=== PATIENT | female | born 1960 | race African-American/Black ===

== ENCOUNTER 2019-05-11 20:43 | Emergency (ER) | payer MEDICAID, OTHER ==
[~2019-05-11] VITALS: Ht 170.2 cm; Wt 90.9 kg
[~2019-05-11 20:43] MED LIST: AMLO5TAB PO; CYCL-1 PO; DIPH-423 PO; HYDR25TA4 PO; IBUP-1984 PO; RISP0.5T3 PO; SERT25TA PO; SERT50TA PO; TRAZ-251 PO
[2019-05-11] MEDS ORDERED: ketorolac tromethamine 15mg/ml inj. IM ONE (21:55)
[2019-05-11 21:57] VITALS: BP 148/82
[2019-05-11] MEDS ORDERED: HYDR25TA4 PO (22:15)
== END 2019-05-11 22:50 | disposition home or self-care (01) ==
LOC: ER 20:44
DX: M25.561 Pain in right knee (principal); R22.43 Localized swelling, mass and lump, lower limb, bilateral; I10 Essential (primary) hypertension; M79.7 Fibromyalgia; J44.9 Chronic obstructive pulmonary disease, unspecified; M19.90 Unspecified osteoarthritis, unspecified site; F31.9 Bipolar disorder, unspecified; G89.29 Other chronic pain; F15.90 Other stimulant use, unspecified, uncomplicated; F11.90 Opioid use, unspecified, uncomplicated; Z86.14 Personal history of Methicillin resistant Staphylococcus aureus infection; Z60.2 Problems related to living alone; Z59.0 Homelessness; Z56.0 Unemployment, unspecified; Z88.8 Allergy status to other drugs, medicaments and biological substances; Z79.899 Other long term (current) drug therapy
CPT/HCPCS: 29505; 96372; 99283; J1885

== ENCOUNTER 2023-07-02 14:25 | Emergency (ER) | payer MEDICAID ==
[~2023-07-02] VITALS: Ht 170.2 cm; Wt 79.5 kg
[~2023-07-02 14:25] MED LIST changes: -RISP0.5T3 PO; +RISP0.5T65 PO
[2023-07-02 15:10] LABS: BASOPHILS % (AUTO) 0.7 % (0-1); EOSINOPHILS # (AUTO) 0.1 X10'3 (0-0.9); EOSINOPHILS % (AUTO) 1.9 % (0-6); HEMATOCRIT 38.1 % (35.0-45.0); LYMPHOCYTES # (AUTO) 1.8 X10'3 (1.1-4.8); LYMPHOCYTES % (AUTO) 33.1 % (21-51); MEAN CORPUSCULAR HEMOGLOBIN 28.7 PG (27.0-31.0); MEAN CORPUSCULAR HGB CONC 31.6 g/dL (33.0-36.5); MEAN CORPUSCULAR VOLUME 90.9 FL (78-98); MEAN PLATELET VOLUME 10.2 FL (7.4-10.4); MONOCYTES # (AUTO) 0.4 X10'3 (0-0.9); MONOCYTES % (AUTO) 6.9 % (2-12); NEUTROPHILS % (AUTO) 57.4 % (42-75); PLATELET COUNT 183 X10'3 (140-440); RED BLOOD COUNT 4.19 X10'6 (4.20-5.60); WHITE BLOOD COUNT 5.3 X10'3 (4.5-11.0)
[2023-07-02 15:15] VITALS: BP 103/69; PULSE 59; RESP 18; TEMP 98.3; O2SAT 98
[2023-07-02 15:25] LABS: ALANINE AMINOTRANSFERASE 11 U/L (12-78); ALBUMIN 3.5 G/DL (3.4-5.0); ALBUMIN/GLOBULIN RATIO 0.8 (1.1-1.5); ALKALINE PHOSPHATASE 83 IU/L (46-116); ANION GAP 7 (8-16); ASPARTATE AMINO TRANSFERASE 16 U/L (10-37); BILIRUBIN,TOTAL 0.3 MG/DL (0.1-1.0); BLOOD UREA NITROGEN 17 MG/DL (7-18); BUN/CREATININE RATIO 14.9 (10.0-20.0); CALCIUM 9.4 MG/DL (8.5-10.1); CHLORIDE 105 MMOL/L (99-107); CREATININE 1.14 MG/DL (0.40-0.90); GLUCOSE 103 MG/DL (70-104); POTASSIUM 3.6 MMOL/L (3.5-5.1); SODIUM 140 MMOL/L (135-145); TOTAL CARBON DIOXIDE 28.4 MMOL/L (24-32); eGFR 58 ML/MIN
== END 2023-07-02 17:13 | disposition home or self-care (01) ==
LOC: ER 14:26
DX: R07.9 Chest pain, unspecified (principal); J44.9 Chronic obstructive pulmonary disease, unspecified; I10 Essential (primary) hypertension; G89.29 Other chronic pain; M54.9 Dorsalgia, unspecified; F31.9 Bipolar disorder, unspecified; Z86.14 Personal history of Methicillin resistant Staphylococcus aureus infection; Z59.00 Homelessness unspecified; Z56.0 Unemployment, unspecified; Z88.5 Allergy status to narcotic agent; Z79.899 Other long term (current) drug therapy
CPT/HCPCS: 36415; 71045; 80053; 83880; 84484; 85025; 93005; 99285

== ENCOUNTER 2023-07-24 22:22 | Emergency (ER) | payer MEDICAID ==
[~2023-07-24] VITALS: Ht 180.3 cm; Wt 100.0 kg
[2023-07-24 22:26] VITALS: TEMP 98.2
--- NOTE | 2023-07-24 22:32 | NUR ---
AT BEDSIDE ASSESSING PATIENTS NEURO STATUS
[2023-07-24] MEDS ORDERED: LORazepam 1 MG tablet PO ONE (22:35)
[2023-07-24 23:14] LABS: BASOPHILS % (AUTO) 0.5 % (0-1); EOSINOPHILS # (AUTO) 0.2 X10'3 (0-0.9); EOSINOPHILS % (AUTO) 2.9 % (0-6); HEMATOCRIT 35.1 % (35.0-45.0); HEMOGLOBIN 11.4 g/dl (12.0-16.0); LYMPHOCYTES # (AUTO) 2.1 X10'3 (1.1-4.8); LYMPHOCYTES % (AUTO) 36.6 % (21-51); MEAN CORPUSCULAR HGB CONC 32.6 g/dL (33.0-36.5); MEAN CORPUSCULAR VOLUME 88.8 FL (78-98); MEAN PLATELET VOLUME 10.3 FL (7.4-10.4); MONOCYTES # (AUTO) 0.6 X10'3 (0-0.9); MONOCYTES % (AUTO) 9.7 % (2-12); NEUTROPHILS # (AUTO) 2.9 X10'3 (1.8-7.7); NEUTROPHILS % (AUTO) 50.3 % (42-75); PLATELET COUNT 175 X10'3 (140-440); RED BLOOD COUNT 3.95 X10'6 (4.20-5.60); RED CELL DISTRIBUTION WIDTH 13.7 % (11.5-14.5); WHITE BLOOD COUNT 5.8 X10'3 (4.5-11.0)
[2023-07-24 23:38] LABS: ALANINE AMINOTRANSFERASE 10 U/L (12-78); ALBUMIN 3.6 G/DL (3.4-5.0); ALBUMIN/GLOBULIN RATIO 0.9 (1.1-1.5); ALKALINE PHOSPHATASE 86 IU/L (46-116); ANION GAP 9 (8-16); ASPARTATE AMINO TRANSFERASE 19 U/L (10-37); BILIRUBIN,TOTAL 0.2 MG/DL (0.1-1.0); BLOOD UREA NITROGEN 30 MG/DL (7-18); BUN/CREATININE RATIO 22.1 (10.0-20.0); CALCIUM 9.2 MG/DL (8.5-10.1); CHLORIDE 103 MMOL/L (99-107); CREATININE 1.36 MG/DL (0.40-0.90); GLUCOSE 135 MG/DL (70-104); MAGNESIUM 1.9 MG/DL (1.5-2.4); PRO BRAIN NATRIURETIC PEPTIDE 88 PG/ML (0-125); SODIUM 140 MMOL/L (135-145); TOTAL PROTEIN 7.6 G/DL (6.4-8.2); eCRCL 47 ML/MIN; eGFR 47 ML/MIN
[2023-07-24 23:47] LABS: POTASSIUM 2.9 MMOL/L (3.5-5.1)
[2023-07-24] MEDS ORDERED: potassium Cl 20mEq/100mL bag 100 ML IV STA (23:47)
[2023-07-25 04:57] VITALS: BP 105/67; PULSE 54; RESP 16; O2SAT 98
== END 2023-07-25 05:02 | disposition home or self-care (01) ==
LOC: ER 22:23
DX: E87.6 Hypokalemia (principal); I10 Essential (primary) hypertension; J44.9 Chronic obstructive pulmonary disease, unspecified; M19.90 Unspecified osteoarthritis, unspecified site; F31.9 Bipolar disorder, unspecified; Z88.8 Allergy status to other drugs, medicaments and biological substances; Z79.899 Other long term (current) drug therapy; Z79.1 Long term (current) use of non-steroidal anti-inflammatories (NSAID); Z98.890 Other specified postprocedural states
CPT/HCPCS: 36415; 71045; 80053; 83735; 83880; 84484; 85025; 93005; 96365; 96366; 99285; J3480; J7030

== ENCOUNTER 2023-08-14 20:09 | Emergency (ER) | payer MEDICAID ==
[~2023-08-14] VITALS: Ht 170.2 cm; Wt 75.0 kg
[2023-08-14 20:13] VITALS: BP 113/68; PULSE 95; RESP 16; TEMP 97.6; O2SAT 98
== END 2023-08-14 22:03 | disposition left against medical advice (07) ==
LOC: ER 20:10
DX: F41.9 Anxiety disorder, unspecified (principal); Z53.21 Procedure and treatment not carried out due to patient leaving prior to being seen by health care provider
CPT/HCPCS: 99281

== ENCOUNTER 2023-11-20 08:17 | Inpatient (IN) | payer MEDICAID ==
[2023-11-19 10:16] LABS: MEAN PLATELET VOLUME 9.6 FL (7.4-10.4)
[2023-11-19 10:18] LABS: EOSINOPHILS # (AUTO) 0.1 X10'3 (0-0.9); EOSINOPHILS % (AUTO) 3.4 % (0-6); LYMPHOCYTES # (AUTO) 1.5 X10'3 (1.1-4.8); LYMPHOCYTES % (AUTO) 39.3 % (21-51); MEAN CORPUSCULAR HEMOGLOBIN 29.3 PG (27.0-31.0); MEAN CORPUSCULAR VOLUME 88.8 FL (78-98); MONOCYTES # (AUTO) 0.3 X10'3 (0-0.9); MONOCYTES % (AUTO) 8.7 % (2-12); NEUTROPHILS # (AUTO) 1.9 X10'3 (1.8-7.7); NEUTROPHILS % (AUTO) 47.6 % (42-75); PRE OP HEMATOCRIT 35.6 % (35.0-45.0); PRE OP HEMOGLOBIN 11.8 g/dL (12.0-16.0); PRE OP PLATELET COUNT 176 X10'3 (140-440); PRE OP WHITE BLOOD COUNT 3.9 10'3 (4.8-10.8); RED BLOOD COUNT 4.01 X10'6 (4.20-5.60); RED CELL DISTRIBUTION WIDTH 13.6 % (11.5-14.5)
[2023-11-19 10:28] LABS: PRE OP PROTIME 10.6 SECONDS (9.0-12.0)
[2023-11-19 10:39] LABS: ALBUMIN 3.5 G/DL (3.4-5.0); ALBUMIN/GLOBULIN RATIO 0.8 (1.1-1.5); ALKALINE PHOSPHATASE 99 IU/L (46-116); BLOOD UREA NITROGEN 16 MG/DL (7-18); CALCIUM 9.4 MG/DL (8.5-10.1); CHLORIDE 106 MMOL/L (99-107); CREATININE 1.07 MG/DL (0.40-0.90); PRE OP ALT 18 U/L (30-65); PRE OP ANION GAP 5 (8-16); PRE OP AST 20 U/L (10-37); PRE OP BILIRUB, TOTAL 0.4 MG/DL (0.0-1.0); PRE OP GLUCOSE 83 MG/DL (70-104); PRE OP POTASSIUM 3.9 MMOL/L (3.4-5.1); PRE OP SODIUM 140 MMOL/L (135-145); TOTAL CARBON DIOXIDE 28.7 MMOL/L (24-32); TOTAL PROTEIN 7.9 G/DL (6.4-8.2); eGFR 62 ML/MIN
[2023-11-20] VITALS (30 sets, daily range): BP systolic 97–126; BP diastolic 56–75; PULSE 64–83; RESP 12–18; TEMP 98.2; O2SAT 94–99
[~2023-11-20] VITALS: Ht 170.2 cm; Wt 80.9 kg
[~2023-11-20 08:17] MED LIST changes: +AMLO10TA13 PO; -AMLO5TAB PO; +ANAS1TAB10 PO; +BUPR-317 PO; -CYCL-1 PO; -DIPH-423 PO; +DOXY-457 PO; -RISP0.5T65 PO; -SERT25TA PO; -SERT50TA PO; -TRAZ-251 PO; +[UNRECOGNIZED DRUG - OTHER]; +cefazolin 2gm/D5W 100mL 100 ML IV ONE; +famotidine 20mg tablet PO ONE; +ringers solution, lacted 1,000 ML IV SCH
[2023-11-20] MEDS ORDERED: BUPIVAcaine/PF 2.5mg/ml (0.25%) 10ml vial ONE (10:21)
[2023-11-20] MEDS ORDERED: BUPIVACAINE liposomal/PF 13.3 MG/ML vial IM ONE (10:21)
[2023-11-20] MEDS ORDERED: midazolam 1 mg/ML 2ml injection ONE (10:32)
[2023-11-20] MEDS ORDERED: methylene blue (5mg/ml) 50mg/10ml ampul IV ONE ×2 (10:51→12:06)
[2023-11-20] MEDS ORDERED: ondansetron/PF 4mg/2ml inj ONE (11:21)
[2023-11-20] MEDS ORDERED: propofol inj 20 ML IV ONE (11:21)
[2023-11-20] MEDS ORDERED: LIDOcaine 2% (20mg/ml) 5ml vial ONE (11:21)
[2023-11-20] MEDS ORDERED: ePHEDrine 50MG/ML INJ. ONE (11:21)
[2023-11-20] MEDS ORDERED: dexamethasone sod phosphate 4mg/ml inj. ONE (11:21)
[2023-11-20] MEDS ORDERED: BUPIVAcaine/PF 2.5mg/ml (0.25%) 10ml vial IJ ONE (11:45)
[2023-11-20] MEDS ORDERED: morphine 2 MG/ML inj. syringe IV PRN (12:55)
[2023-11-20] MEDS ORDERED: labetalol 20mg/4ml (5mg/ml) syringe IV PRN (12:55)
[2023-11-20] MEDS ORDERED: meperidine/PF 25mg/ml syringe IV PRN (12:55)
[2023-11-20] MEDS ORDERED: ondansetron/PF 4mg/2ml inj IV PRN ×2 (12:55→13:15)
[2023-11-20] MEDS ORDERED: proCHLORperazine 10 MG/2 ml inj IV PRN (12:55)
[2023-11-20] MEDS ORDERED: morphine 4 MG/ML inj SYRINge IV PRN (12:55)
[2023-11-20] MEDS ORDERED: ringers solution, lacted 1,000 ML IV SCH (12:55)
[2023-11-20] MEDS ORDERED: HYDROmorphone/PF 0.2 MG/ML SYRINGE IV PRN (12:55)
[2023-11-20] MEDS ORDERED: hydrALAZINE 20mg/ml inj. IV PRN (12:55)
[2023-11-20] MEDS ORDERED: ketorolac tromethamine 15mg/ml inj. IV ONE (12:55)
[2023-11-20] MEDS ORDERED: acetaminophen 1,000mg/100ml IV 100 ML IV ONE (12:55)
[2023-11-20] MEDS: HYDROmorphone/PF 0.2 MG/ML SYRINGE IV PRN ×2 (13:30→14:05)
[2023-11-20] MEDS ORDERED: magnesium 2GM in 50ml NS 50 ML IV PRN (15:45)
[2023-11-20] MEDS ORDERED: HYDROmorphone 1 mg/ml syringe IV PRN (15:45)
[2023-11-20] MEDS ORDERED: HYDROmorphone inj. 0.5 MG/0.5 ML DISP.SYRIN IV PRN (15:45)
[2023-11-20] MEDS ORDERED: magnesium 4gm in 100ml NS 100 ML IV PRN (15:45)
[2023-11-20] MEDS ORDERED: HYDROcodone/acetaminophen 10/325mg tab PO PRN (15:45)
[2023-11-20] MEDS ORDERED: potassium Cl 40MEQ/1/2NS 520ml 520 ML IV PRN (15:45)
[2023-11-20] MEDS ORDERED: potassium Cl 20 mEq SR tablet PO PRN ×2 (15:45)
[2023-11-20] MEDS: potassium 20mEq/D5LR 1,000 ML IV SCH ×2 (16:00→20:38)
[2023-11-20] MEDS: ceFAZolin 1GM/D5W- ADD-VANTAGE 50 ML IV SCH ×2 (16:55→23:33)
[2023-11-20] MEDS: DOXYCYCLINE 100MG CAPSULE PO SCH (19:31)
[2023-11-20] MEDS: K and/or MAG REPLACEMENT MC SCH (20:00)
[2023-11-20] MEDS: hydrOXYzine 25 MG tablet PO PRN (20:39)
[2023-11-20] MEDS: HYDROcodone/acetaminophen 5mg/325mg tablet PO PRN (20:40)
[2023-11-20] MEDS: diphenhydrAMINE 25mg capsule PO PRN (23:34)
[2023-11-21 02:00] VITALS: BP 97/54; PULSE 64; RESP 14; TEMP 97.4; O2SAT 99
[2023-11-21] MEDS: potassium 20mEq/D5LR 1,000 ML IV SCH ×2 (02:12→08:46)
[2023-11-21 06:00] VITALS: BP 94/48; PULSE 67; RESP 13; TEMP 98.2; O2SAT 97
[2023-11-21] MEDS ORDERED: amLODIPine 5mg tablet PO SCH (08:00)
[2023-11-21] MEDS ORDERED: buPROPion SR 150mg tablet PO SCH (08:00)
[2023-11-21] MEDS: HYDROchlorothiazide 25mg tablet PO SCH ×2 (08:00→08:47)
[2023-11-21] MEDS ORDERED: ibuprofen tablet 400 MG TABLET PO SCH (08:00)
[2023-11-21] MEDS: K and/or MAG REPLACEMENT MC SCH (08:00)
[2023-11-21] MEDS ORDERED: anastrozole 1 MG tablet PO SCH (08:00)
[2023-11-21] MEDS: ceFAZolin 1GM/D5W- ADD-VANTAGE 50 ML IV SCH (08:46)
[2023-11-21] MEDS: DOXYCYCLINE 100MG CAPSULE PO SCH (08:47)
[2023-11-21] MEDS: HYDROcodone/acetaminophen 5mg/325mg tablet PO PRN (08:47)
[2023-11-21] MEDS: diphenhydrAMINE 25mg capsule PO PRN (08:47)
[2023-11-21 10:00] VITALS: BP 130/64; PULSE 70; RESP 16; TEMP 97.8; O2SAT 96
[2023-11-21] MEDS: hydrOXYzine 25 MG tablet PO PRN (12:07)
== END 2023-11-21 15:09 | disposition home or self-care (01) | DRG 362 ==
LOC: PAS 08:17 → PAS IN 13:27 → OBSVTOIN 15:48 → ORTHO 4S 15:55
PROVIDERS: ADMIT Surgery; ATTEND Surgery
PROC: 07B60ZX Excision of Left Axillary Lymphatic, Open Approach, Diagnostic (ICD-10-PCS; 2023-11-20)
PROC: 0HTU0ZZ Resection of Left Breast, Open Approach (ICD-10-PCS; principal; 2023-11-20 10:28)
DX: D05.12 Intraductal carcinoma in situ of left breast (principal); F31.9 Bipolar disorder, unspecified; I10 Essential (primary) hypertension; M17.12 Unilateral primary osteoarthritis, left knee; Z87.891 Personal history of nicotine dependence; Z80.0 Family history of malignant neoplasm of digestive organs; Z80.3 Family history of malignant neoplasm of breast; Z82.5 Family history of asthma and other chronic lower respiratory diseases; Z82.49 Family history of ischemic heart disease and other diseases of the circulatory system; Z86.14 Personal history of Methicillin resistant Staphylococcus aureus infection; Z88.5 Allergy status to narcotic agent; Z88.8 Allergy status to other drugs, medicaments and biological substances; Z79.899 Other long term (current) drug therapy
CPT/HCPCS: 36415; 80053; 82948; 83735; 85025; 85610; 85730; 87081; 97116; 97161; 97530; A4215; A4618; A6253; A6258; A6446; A6449; A7000; C9250; C9290; G0378; J0131; J0690; J1100; J1170; J1885; J2250; J2405; J2704; J3480; J3490; J7120; Q0163; Q0177; Q9968

== ENCOUNTER 2023-11-23 12:26 | Emergency (ER) | payer MEDICAID ==
[~2023-11-23] VITALS: Ht 170.2 cm; Wt 82.3 kg
[2023-11-23 12:26] VITALS: BP 138/70; PULSE 71; RESP 16; TEMP 98.6; O2SAT 99
[~2023-11-23 12:26] MED LIST changes: -cefazolin 2gm/D5W 100mL 100 ML IV ONE; -famotidine 20mg tablet PO ONE; -ringers solution, lacted 1,000 ML IV SCH
[2023-11-23] MEDS ORDERED: HYDR-3686 PO (13:24)
== END 2023-11-23 13:29 | disposition home or self-care (01) ==
LOC: ER 12:26
DX: T81.49XA Infection following a procedure, other surgical site, initial encounter (principal); G89.29 Other chronic pain; M54.9 Dorsalgia, unspecified; I10 Essential (primary) hypertension; F32.A Depression, unspecified; Z88.8 Allergy status to other drugs, medicaments and biological substances; Z79.899 Other long term (current) drug therapy
CPT/HCPCS: 99281; A6253; A6449